=== PATIENT | male | born 1970 | race Caucasian/White ===

== ENCOUNTER 2016-11-10 12:44 | Inpatient (IN) | payer OTHER ==
[~2016-11-10 12:44] MED LIST: RINGERS SOLUTION,LACTATED 1,000 ML IV PRN
--- NOTE | 2016-11-10 12:55 | ER Document Report ---
ED Medical Screen (RME) - General Chief Complaint: Hand Swelling Stated Complaint: RIGHT HAND PAIN/SWELLING Time seen by provider: 12:51 Mode of Arrival: Ambulatory Notes: 46 yo male presents to ed for right hand and thumb pain, was seen at [facility] last . States they said you could get the results of the ct scan and labs from that visit, he has been 60 mg of prednisone and tylenol with hydrocodone since that visit but the pain is worse TRAVEL OUTSIDE OF THE [place] IN LAST 30 DAYS: No - HPI Onset: Last week Onset/Duration: Gradual, Worse Quality of pain: Throbbing Severity: Moderate Pain Level: 3 Associated Symptoms: Other - hand Exacerbated by: Other - not keeping ice on it or letting it lower than heart Relieved by: Remaining still, Other - elevation and ice - Related Data Smoking: Cigarettes - 1/2 ppd Frequency of alcohol use: None - 14 year dry Drug Abuse: None Allergies/Adverse Reactions: acetaminophen [From Tylenol] Allergy (Verified 03/14/16 15:07) NSAIDS (Non-Steroidal Anti-Inflamma [Nsaids] Allergy (Verified 03/14/16 15:07) Past Medical History - Past Medical History Cardiac Medical History: Reports: Hx Hypercholesterolemia, Hx Hypertension Denies: Hx Coronary Artery Disease Pulmonary Medical History: Denies: Hx Asthma Neurological Medical History: Denies: Hx Seizures Musculoskeltal Medical History: Reports Hx Arthritis, Reports Hx Musculoskeletal Deformity, Reports Hx Musculoskeletal Trauma Traumatic Medical History: Reports: Hx Fractures, Hx Spine Fracture Past Surgical History: Reports: Hx Cardiac Catheterization - septic when had faciitis, Hx Orthopedic Surgery, Hx Vascular Surgery - skin grafts to right arm from the thighs from facitis. Denies: Hx Pacemaker - Immunizations Hx Diphtheria, Pertussis, Tetanus Vaccination: Yes - today
[2016-11-10 13:46] LABS: ABSOLUTE BASOPHILS # (AUTO) 0.1 10^3/uL (0.0-0.2); ABSOLUTE LYMPHOCYTES (AUTO) 1.2 10^3/uL (0.5-4.7); ABSOLUTE MONOCYTES (AUTO) 0.3 10^3/uL (0.1-1.4); ABSOLUTE NEUT (AUTO) 10.7 10^3/uL (1.7-8.2); BASOPHILS % (AUTO) 0.5 % (0-2); EOSINOPHILS % (AUTO) 0.4 % (0-6); HEMATOCRIT 36.7 % (37.9-51.0); HEMOGLOBIN 12.4 g/dL (13.5-17.0); HGB HCT DIFFERENCE 0.5; MEAN CORPUSCULAR HEMOGLOBIN 28.2 pg (27.0-33.4); MEAN CORPUSCULAR HGB CONC 33.9 g/dL (32.0-36.0); MEAN CORPUSCULAR VOLUME 83 fl (80-97); MONOCYTES % (AUTO) 2.7 % (3-13); RED BLOOD COUNT 4.42 10^6/uL (4.35-5.55); RED CELL DISTRIBUTION WIDTH 13.8 % (11.5-14.0); SEGMENTED NEUTROPHILS % (AUTO) 86.4 % (42-78); WHITE BLOOD COUNT 12.4 10^3/uL (4.0-10.5)
[2016-11-10 14:08] LABS: ALANINE AMINOTRANSFERASE 22 U/L (21-72); ALBUMIN 3.9 g/dL (3.5-5.0); ALKALINE PHOSPHATASE 60 U/L (38-126); ANION GAP 10 (5-19); ASPARTATE AMINO TRANSFERASE 15 U/L (17-59); BILIRUBIN,TOTAL 0.4 mg/dL (0.2-1.3); BLOOD UREA NITROGEN 19 mg/dL (7-20); CARBON DIOXIDE 26 mmol/L (22-30); CHLORIDE 104 mmol/L (98-107); CREATININE RESULT 0.86 mg/dL (0.52-1.25); GLUCOSE 138 mg/dL (75-110); POTASSIUM 3.9 mmol/L (3.6-5.0); SODIUM 140.1 mmol/L (137-145); TOTAL PROTEIN 7.2 g/dL (6.3-8.2)
[2016-11-10] MEDS ORDERED: ONDANSETRON HCL INJ/PF 4 MG/2 ML SDV IV ONE (14:17)
[2016-11-10] MEDS ORDERED: HYDROMORPHONE HCL INJ/PF 2 MG/ML AMPULE IV ONE (14:17)
--- NOTE | 2016-11-10 14:31 | ER Document Report ---
ED Hand/Wrist Injury - General Chief Complaint: Hand Pain Stated Complaint: RIGHT HAND PAIN/SWELLING Mode of Arrival: Ambulatory Notes: Patient noted the onset of swelling of his right hand beginning about 10 days ago. Does not recall any injury or reason that he would have such swelling. Has never had this previously. A few days later, about a week ago, he went to the emergency department at [facility] where he was seen by a doctor Andrew José, who ordered an x-ray and a CT scan of the hand (patient told they were negative) and gave the patient a shot of antibiotics, but no prescription for more antibiotics after the ER visit. He was told that his final diagnosis was arthritis. His hand and wrist was splinted and he was put on [place] for pain and prednisone 60 mg a day for 7 days. He was advised to follow-up with Dr. Idris Hyman at the [facility] for [facility]. His hand has progressively swollen and today and they attempted to follow-up with the surgeon, but were advised there was a $400 co-pay which they cannot afford. Apparently that surgeon's office recommended they come to this emergency department since he's been seen here for medical problems previously. Patient has not noted any fever. His main focus of pain and swelling seems to be around the first metacarpal and thumb and the adjacent thenar region. He does not have any numbness or loss of use of the hand or fingers at this time. TRAVEL OUTSIDE OF THE [place] IN LAST 30 DAYS: No - Related Data Allergies/Adverse Reactions: acetaminophen [From Tylenol] Allergy (Verified 03/14/16 15:07) NSAIDS (Non-Steroidal Anti-Inflamma [Nsaids] Allergy (Verified 03/14/16 15:07) Past Medical History - Social History Smoking Status: Current Every Day Smoker Cigarette use (# per day): Yes Chew tobacco use (# tins/day): No Frequency of alcohol use: None - 14 year dry Drug Abuse: None Family History: Reviewed & Not Pertinent, Arthritis, CVA, DM, Hyperlipidemia, Hypertension Patient has suicidal ideation: No Patient has homicidal ideation: No - Past Medical History Cardiac Medical History: Reports: Hx Hypercholesterolemia, Hx Hypertension Pulmonary Medical History: Denies: Hx Asthma Musculoskeltal Medical History: Reports Hx Arthritis, Reports Hx Musculoskeletal Deformity, Reports Hx Musculoskeletal Trauma, Reports Other - Patient had necrotizing fasciitis which cause significant injury and damage to the muscles of his right forearm Traumatic Medical History: Reports: Hx Fractures, Hx Spine Fracture Past Surgical History: Reports: Hx Cardiac Catheterization - septic when had faciitis, Hx Orthopedic Surgery, Hx Vascular Surgery - skin grafts to right arm from the thighs from facitis. Denies: Hx Pacemaker - Immunizations Hx Diphtheria, Pertussis, Tetanus Vaccination: Yes - today Review of Systems - Review of Systems Notes: REVIEW OF SYSTEMS: CONSTITUTIONAL : Denies fever. EENT: Denies eye, ear, nose or mouth or throat pain or other symptoms. CARDIOVASCULAR: Denies chest pain. RESPIRATORY: Denies cough, chest congestion, or shortness of breath. GASTROINTESTINAL: Denies abdominal pain or nausea, vomiting, or diarrhea. GENITOURINARY: Denies difficulty or painful urinating, urinary frequency, blood in urine. MUSCULOSKELETAL: Denies back or neck pain. See history of present illness regarding right hand. SKIN: Denies rash or skin lesions. NEUROLOGICAL: Denies LOC or altered mental status. Denies headache. Denies sensory loss or motor deficits. ALL OTHER SYSTEMS REVIEWED AND NEGATIVE. Physical Exam - Vital signs Vitals: Temp Pulse Resp BP Pulse Ox 97.3 F 86 16 144/82 H 98 11/10/16 12:52 11/10/16 12:52 11/10/16 12:52 11/10/16 12:52 11/10/16 12:52 Interpretation: Normal - Temp 97.3, pulse 86, respirations 16, blood pressure 144/82, O2 sat 98% in triage. - Notes Notes: PHYSICAL EXAMINATION: GENERAL: Well-appearing, in no acute distress. Vital signs are all normal. HEAD: Atraumatic, normocephalic. LUNGS: Breath sounds clear and equal bilaterally. HEART: Regular rate and rhythm without murmurs. ABDOMEN: Soft, nontender. No guarding or rebound. BACK: No tenderness throughout entire back. EXTREMITIES: Right hand diffusely swollen, primarily around the first MP joint and the first metacarpal. Tender to palpate around that area and into the thenar eminence on the palm surface. Flexion or extension at the MP joint produces some pain, but does not produce as much pain that I would expect with a tenosynovitis of the tendon or sheath. Excellent blood flow into all digits with brisk capillary refill and pink, warm hand and fingers. NEUROLOGICAL: Normal speech, normal gait. Normal sensory, motor, and reflex exams. Awake, alert, and oriented x3. Cranial nerves normal. PSYCH: Normal mood, normal affect. SKIN: Warm, dry, no rashes. Course - Re-evaluation Re-evalutation: 11/10/16 19:[address] Stafford, fuel distribution system operator for or so, who will admit the patient and see him in the morning to determine what to do to try to establish a definite diagnosis and proper treatment. He recommends no antibiotics at this time. Patient states that he thinks his IV is in his left radial artery as the blood is very bright red and spurted out when the IV was started. Also, he says he can feel medications and anything else being administered through that IV line. He has an excellent radial pulse distal to the needle. He has excellent capillary refill in all the fingers of that hand. He has movement of all the fingers and thumb. No evidence of extravasation. Just as a precaution, I have asked the nurse to remove that IV and we will have to reestablish another one. - Vital Signs Vital signs: Temp Pulse Resp BP Pulse Ox 97.3 F 86 16 144/82 H 98 11/10/16 12:52 11/10/16 12:52 11/10/16 12:52 11/10/16 12:52 11/10/16 12:52 - Laboratory Result Diagrams: 11/10/16 13:25 11/10/16 13:25 Laboratory results interpreted by me: 11/10/16 11/10/16 11/10/16 13:25 13:25 13:25 WBC 12.4 H Hgb 12.4 L Hct 36.7 L Seg Neutrophils % 86.4 H Lymphocytes % 10.0 L Monocytes % 2.7 L Absolute Neutrophils 10.7 H ESR Glucose 138 H AST 15 L C-Reactive Protein 15.1 H Rheumatoid Factor 11/10/16 11/10/16 13:25 14:13 WBC Hgb Hct Seg Neutrophils % Lymphocytes % Monocytes % Absolute Neutrophils ESR 27 H Glucose AST C-Reactive Protein Rheumatoid Factor POSITIVE 1:1 H 11/10/16 19:55 - Diagnostic Test Radiology reviewed: Image reviewed, Reports reviewed - MRI of the patient's right hand shows multiple abnormal findings of the bone and soft tissue of the first metacarpal with multiple fluid collections measuring 5-10 mm as well as enhancement in the marrow of the bone. The impression is possible osteomyelitis with soft tissue abscess with differential consideration including inflammatory arthropathies. Discharge - Discharge Clinical Impression: Swelling of right hand, Possible osteomyelitis with abscess Disposition: ADMITTED OBSERVATION Admitting Provider: Stafford Unit Admitted: Surgical Floor
[2016-11-10 14:33] LABS: C-REACTIVE PROTEIN 15.1 mg/L (<10.0); URIC ACID 4.2 mg/dL (3.5-8.5)
[2016-11-10] MEDS ORDERED: HYDROMORPHONE HCL 2 MG TABLET PO ONE (20:01)
[2016-11-10] MEDS ORDERED: PROMETHAZINE HCL 25 MG TABLET PO ONE (20:01)
[2016-11-10] MEDS ORDERED: HYDROCODONE/ACETAMINOPHEN 5-325 MG TABLET PO PRN (20:44)
[2016-11-10] MEDS ORDERED: ONDANSETRON HCL INJ/PF 4 MG/2 ML SDV IV PRN (20:45)
[2016-11-10] MEDS: MORPHINE SULFATE 10 MG/ML INJ IV PRN (23:39)
[2016-11-11] MEDS ORDERED: INFLUENZA ADLT QUAD (36MOS+) 2016-17 VAC 0.5 ML SYR IM PRN (00:29)
[2016-11-11] MEDS: MORPHINE SULFATE 10 MG/ML INJ IV PRN ×7 (03:43→22:25)
[2016-11-11] MEDS ORDERED: HYDROMORPHONE HCL INJ/PF 2 MG/ML AMPULE ONE (14:15)
[2016-11-11] MEDS ORDERED: MIDAZOLAM 2 MG/2 ML INJ ONE (14:15)
[2016-11-11] MEDS ORDERED: PROPOFOL INJ 200 MG/20 ML VIAL IV ONE (14:16)
[2016-11-11] MEDS ORDERED: ONDANSETRON HCL INJ/PF 4 MG/2 ML SDV ONE (14:16)
[2016-11-11] MEDS ORDERED: EPHEDRINE SULFATE INJ 50 MG/1 ML AMPULE ONE (14:16)
--- NOTE | 2016-11-11 14:23 | PDOC H&P ---
History of Present Illness Admission Date/PCP: 11/10/16 20:43 Patient complains of: Right hand swelling and pain History of Present Illness: GURPREET VALLE is a 46 year old male who about 10 days ago developed swelling and pain and the right thumb/hand. He was seen in [facility] where they give from intramuscular antibiotics and prednisone to take. CT scan was done showing a fluid collection so they were not concerned for infection. Patient now returns to [facility] complaining of increased pain and swelling. Denies any numbness or tingling but complains of pain and swelling. There is some mild erythema now. Patient has decreased range of motion of the hand second to the swelling and pain and redness. MRI was done in the ER and noticed that the patient have fluid collection and orthopedics was consulted for surgical intervention. Patient denies having use IV drug abuse. Denies previous trauma or injury to the right hand. Past Medical History Cardiac Medical History: Reports: Hyperlipidema, Hypertension Denies: Coronary Artery Disease Pulmonary Medical History: Denies: Asthma Neurological Medical History: Denies: Seizures Musculoskeltal Medical History: Reports: Arthritis, Other - Patient had necrotizing fasciitis which cause significant injury and damage to the muscles of his right forearm Past Surgical History Past Surgical History: Reports: Cardiac Catheterization - septic when had faciitis, Orthopedic Surgery, Vascular Surgery - skin grafts to right arm from the thighs from facitis Denies: Pacemaker Social History Smoking Status: Current Every Day Smoker Cigarettes Packs Per Day: 0.5 Number of Years Smokin Frequency of Alcohol Use: None Hx Recreational Drug Use: No Drugs: None - Advance Directive Resuscitation Status: Full Code Family History Family History: Reviewed & Not Pertinent, Arthritis, CVA, DM, Hyperlipidemia, Hypertension Parental Family History Reviewed: Yes Children Family History Reviewed: Yes Sibling(s) Family History Reviewed.: Yes Medication/Allergy Home Medications: Cyclobenzaprine HCl [Flexeril 10 Mg Tablet] 10 mg PO TIDP PRN #10 tablet Clindamycin HCl [Cleocin 150 mg Capsule] 450 mg PO Q6 10 Days 02/10/15 Doxycycline Hyclate 100 mg PO BID #20 capsule 02/10/15 Oxycodone HCl/Acetaminophen [Percocet 5-325 mg Tablet] 1 - 2 tab PO ASDIR PRN # 15 tablet 02/10/15 Oxycodone HCl/Acetaminophen [Percocet 5-325 mg Tablet] 1 - 2 tab PO Q4H PRN #15 tablet 02/13/15 Cephalexin [Cephalexin 500 MG Tablet] 500 mg PO QID #25 tablet 07/11/15 Clindamycin HCl 300 mg PO QID #30 capsule 07/11/15 Oxycodone HCl [Oxycodone HCl 10 MG Tablet] 1 - 2 tab PO Q6H PRN #15 tablet 07/11 Cephalexin Monohydrate [Keflex 500 mg Capsule] 500 mg PO QID #28 capsule Oxycodone HCl 5 mg PO Q4HP PRN #20 capsule 09/12/15 Sulfamethoxazole/Trimethoprim [Bactrim Ds Tablet] 1 each PO BID #14 tablet 09/12 Oxycodone HCl 5 mg PO Q4 #15 capsule 09/13/15 No Home Medications 11/11/16 Allergies/Adverse Reactions: acetaminophen [From Tylenol] Allergy (Verified 03/14/16 15:07) NSAIDS (Non-Steroidal Anti-Inflamma [Nsaids] Allergy (Verified 03/14/16 15:07) Physical Exam Vital Signs: Temp Pulse Resp BP Pulse Ox 36.7 C 64 15 132/75 H 100 11/11/16 11:26 11/11/16 11:26 11/11/16 11:26 11/11/16 11:26 11/11/16 11:26 Intake & Output 11/10/16 11/11/16 11/12/16 06:59 06:59 06:59 Intake Total 360 0 Balance 360 0 Weight 73 kg General appearance: PRESENT: no acute distress Eye exam: PRESENT: EOMI. ABSENT: conjunctival injection, nystagmus Respiratory exam: PRESENT: chest wall tenderness, symmetrical, unlabored. ABSENT: accessory muscle use, tachypnea Pulses: PRESENT: normal radial pulses Vascular exam: PRESENT: normal capillary refill Front of Hands Image: 1 - Thenar swelling both volar and dorsal. Limited metacarpophalangeal motion second to pain. IP joint has good range of motion but discomfort. Has good sensation to light touch with good capillary refill of the thumb and hand. Wrist dhillon he can extend and flex the wrist. Remaining digits he has full range of motion without pain. Neurological exam: PRESENT: alert, awake, oriented to person, oriented to place , oriented to time Psychiatric exam: PRESENT: appropriate affect, normal mood Skin exam: PRESENT: erythema, intact, normal color Results Impressions: Hand X-Ray 11/10/16 12:55 IMPRESSION: Soft tissue swelling in the right hand without radiopaque foreign body or soft tissue gas. Advanced osteoarthritis at the right 1st carpometacarpal joint. Upper Extremity MRI 11/10/16 14:21 IMPRESSION: Multiple abnormal findings in both bone and soft tissue of the 1st metacarpal and trapezium bones and joint space, with multiple small rim enhancing fluid collections measuring 5 to 10 mm as well as enhancement in the marrow. This may reflect osteomyelitis with soft tissue abscess with differential considerations including inflammatory arthropathies. Hand Surgical consultation is recommended. Assessment & Plan - Diagnosis (1) Abscess of hand, right Is this a current diagnosis for this admission?: YesPlan: 46-year-old gentleman with right hand swelling and a increased white count, sedimentation rate, CRP. These labs in conjunction with the fluid in the MRI I believe the patient probably has an abscess. Patient was admitted and made nothing by mouth and started on IV fluids. We'll have to do an irrigation debridement of the thenar area of the hand both dorsal and volar to access the side of infection. We will culture the infection and then set him on antibiotics after the I&D. I anticipate the patient is being admitted for at least 2 nights for IV antibiotics and then be discharge with by mouth antibiotics.
[2016-11-11] MEDS ORDERED: FENTANYL CITRATE INJ/PF 100 MCG/2 ML AMPUL IV PRN ×3 (15:08)
[2016-11-11] MEDS ORDERED: DIPHENHYDRAMINE HCL 50 MG/ML VIAL IV PRN (15:08)
[2016-11-11] MEDS ORDERED: MEPERIDINE HCL/PF INJ 25 MG/1 ML DISP.SYRIN IV PRN (15:08)
[2016-11-11] MEDS ORDERED: PROMETHAZINE HCL INJ 25 MG/1 ML VIAL IV PRN (15:08)
[2016-11-11] MEDS: BACITRACIN INJ 50,000 UNIT VIAL ONE ×2 (15:15→15:25)
[2016-11-11] MEDS ORDERED: BUPIVACAINE HCL 0.25% /EPINEPHRINE INJ/PF 30 ML SDV ONE (15:21)
[2016-11-11] MEDS ORDERED: BUPIVACAINE HCL 0.25 % INJ/PF (2.5 MG/1 ML) 30 ML VIAL ONE (15:22)
[2016-11-11] MEDS ORDERED: OXYCODONE HCL IR 5 MG TABLET PO PRN (15:56)
--- NOTE | 2016-11-11 15:57 | Operative Report ---
Operative Report DATE OF SURGERY: 11/11/16 PREOPERATIVE DIAGNOSIS: Right hand cellulitis/abscess POSTOPERATIVE DIAGNOSIS: Right hand cellulitis OPERATION: Right hand I&D ANESTHESIA: GA COMPLICATIONS: none ESTIMATED BLOOD LOSS: 15mL PROCEDURE: Patient was brought to the operating room and induced and intubated after being placed in supine position and the right hand was prepped and draped in a normal surgical fashion. Antibiotics were not given until after the cultures. No tourniquet was applied. After sterilely prepping and draping the right upper extremity we did a timeout identifying the right thenar region and first MTP joint. 2 half-inch incisions were done on the first webspace on the dorsal aspect and a stab incision at the base of the thumb over the tip trapezius and metacarpal joint both were dissected bluntly with a hemostat clamp. No pus was expressed. Cultures were taken. She had significant edema and had serosanguineous drainage only. Once this creak most of the edema out I proceeded then to use iodoform packing to use as a wick for both incisions and placed one stitch in each to approximate the tissue. I overwrapped it with a 4 x 4 dressing and soft roll and [place]. At this point the drapes were cut and removed and the patient was extubated and sent to PACU in stable condition. Patient will be started on IV antibiotics now and will have a vision changes postop day 1 and now reevaluation of the hand.
[2016-11-11] MEDS: PIPERACILLIN SODIUM/TAZOBACTAM 3.375 GM in NORMAL SALINE 100 ML IV SCH (18:00)
[2016-11-11] MEDS: OXYCODONE HCL IR 5 MG TABLET PO PRN (21:19)
[2016-11-12] MEDS: MORPHINE SULFATE 10 MG/ML INJ IV PRN ×8 (00:41→21:51)
[2016-11-12] MEDS: PIPERACILLIN SODIUM/TAZOBACTAM 3.375 GM in NORMAL SALINE 100 ML IV SCH ×3 (02:06→17:49)
[2016-11-12] MEDS: OXYCODONE HCL IR 5 MG TABLET PO PRN ×5 (02:07→22:31)
[2016-11-12 05:39] LABS: ABSOLUTE BASOPHILS # (AUTO) 0.1 10^3/uL (0.0-0.2); ABSOLUTE EOSINOPHILS # (AUTO) 0.2 10^3/uL (0.0-0.6); ABSOLUTE LYMPHOCYTES (AUTO) 3.8 10^3/uL (0.5-4.7); ABSOLUTE NEUT (AUTO) 7.4 10^3/uL (1.7-8.2); EOSINOPHILS % (AUTO) 1.6 % (0-6); HEMATOCRIT 35.6 % (37.9-51.0); HGB HCT DIFFERENCE 0.4; LYMPHOCYTES % (AUTO) 30.4 % (13-45); MEAN CORPUSCULAR HEMOGLOBIN 28.2 pg (27.0-33.4); MEAN CORPUSCULAR HGB CONC 33.7 g/dL (32.0-36.0); MEAN CORPUSCULAR VOLUME 84 fl (80-97); MONOCYTES % (AUTO) 7.9 % (3-13); RED BLOOD COUNT 4.25 10^6/uL (4.35-5.55); SEGMENTED NEUTROPHILS % (AUTO) 59.1 % (42-78); WHITE BLOOD COUNT 12.4 10^3/uL (4.0-10.5)
--- NOTE | 2016-11-12 14:15 | PDOC PROGRESS REPORT ---
Subjective Progress Note for:: 11/12/16 Subjective:: Patient with significant pain requiring narcotics and IV morphine. No fevers or chills overnight. Physical Exam Vital Signs: Temp Pulse Resp BP Pulse Ox 36.9 C 50 L 16 111/59 L 93 11/12/16 11:01 11/12/16 11:01 11/12/16 11:01 11/12/16 11:01 11/12/16 11:01 Intake & Output 11/11/16 11/12/16 11/13/16 06:59 06:59 06:59 Intake Total 360 1900 1168 Output Total 1860 Balance 803 09 9770 Weight 73 kg General appearance: PRESENT: no acute distress Front of Hands Image: 1 - Both incisions just draining serosanguineous fluid. Packing was removed. Erythema is stable and swelling is stable. Patient has good capillary refilling able to flex and extend the digits though stiffen sore as expected. Able to oppose and flex the MCP joint as well. Limited range of motion second to swelling and pain as mentioned above. Results Laboratory Results: 11/12/16 04:48 11/12/16 04:48 WBC 12.4 H RBC 4.25 L Hgb 12.0 L Hct 35.6 L MCV 84 MCH 28.2 MCHC 33.7 RDW 14.0 Plt Count 315 Seg Neutrophils % 59.1 Lymphocytes % 30.4 Monocytes % 7.9 Eosinophils % 1.6 Basophils % 1.0 Absolute Neutrophils 7.4 Absolute Lymphocytes 3.8 Absolute Monocytes 1.0 Absolute Eosinophils 0.2 Absolute Basophils 0.1 Impressions: Hand X-Ray 11/10/16 12:55 IMPRESSION: Soft tissue swelling in the right hand without radiopaque foreign body or soft tissue gas. Advanced osteoarthritis at the right 1st carpometacarpal joint. Upper Extremity MRI 11/10/16 14:21 IMPRESSION: Multiple abnormal findings in both bone and soft tissue of the 1st metacarpal and trapezium bones and joint space, with multiple small rim enhancing fluid collections measuring 5 to 10 mm as well as enhancement in the marrow. This may reflect osteomyelitis with soft tissue abscess with differential considerations including inflammatory arthropathies. Hand Surgical consultation is recommended. Assessment & Plan - Diagnosis (1) Abscess of hand, right Is this a current diagnosis for this admission?: Yes - Plan Summary Plan Summary: 46-year-old gentleman who is postop day 1 from attempted I and D of the right thenar space and base of the first MCP joint. Cultures are negative at the moment. Gram stain showed no bacteria. Dressing was removed and the iodoform packing was removed from his to stab incisions. Has significant swelling but consistent with a postop swelling. Erythema is not spreading on exam today. We 'll continue IV antibiotics and monitor the results of the cultures. If he continues to improve we will likely discharge in the next day or 2.
[2016-11-13] MEDS: MORPHINE SULFATE 10 MG/ML INJ IV PRN ×7 (00:37→22:42)
[2016-11-13] MEDS: PIPERACILLIN SODIUM/TAZOBACTAM 3.375 GM in NORMAL SALINE 100 ML IV SCH ×3 (01:35→17:25)
[2016-11-13 06:28] LABS: ABSOLUTE BASOPHILS # (AUTO) 0.1 10^3/uL (0.0-0.2); ABSOLUTE EOSINOPHILS # (AUTO) 0.3 10^3/uL (0.0-0.6); ABSOLUTE LYMPHOCYTES (AUTO) 3.3 10^3/uL (0.5-4.7); ABSOLUTE MONOCYTES (AUTO) 1.1 10^3/uL (0.1-1.4); ABSOLUTE NEUT (AUTO) 6.5 10^3/uL (1.7-8.2); EOSINOPHILS % (AUTO) 2.5 % (0-6); HEMATOCRIT 44.9 % (37.9-51.0); HGB HCT DIFFERENCE 0.7; LYMPHOCYTES % (AUTO) 29.6 % (13-45); MEAN CORPUSCULAR HGB CONC 33.9 g/dL (32.0-36.0); MEAN CORPUSCULAR VOLUME 83 fl (80-97); MONOCYTES % (AUTO) 9.3 % (3-13); RED BLOOD COUNT 5.44 10^6/uL (4.35-5.55); RED CELL DISTRIBUTION WIDTH 13.8 % (11.5-14.0); SEGMENTED NEUTROPHILS % (AUTO) 57.6 % (42-78); WHITE BLOOD COUNT 11.3 10^3/uL (4.0-10.5)
[2016-11-13 06:39] LABS: HEMOGLOBIN 15.2 g/dL (13.5-17.0)
[2016-11-13] MEDS: OXYCODONE HCL IR 5 MG TABLET PO PRN ×4 (06:40→21:08)
--- NOTE | 2016-11-13 18:36 | PDOC PROGRESS REPORT ---
Subjective Progress Note for:: 11/13/16 Subjective:: Patient states he is feeling saw improved and the swelling and pain in his right thumb and hand Physical Exam Vital Signs: Temp Pulse Resp BP Pulse Ox 36.4 C 86 20 118/69 100 11/13/16 15:09 11/13/16 15:09 11/13/16 15:09 11/13/16 15:09 11/13/16 15:09 Intake & Output 11/12/16 11/13/16 11/14/16 06:59 06:59 06:59 Intake Total 1900 2090 710 Output Total 1860 120 250 Balance 40 1970 460 General appearance: PRESENT: no acute distress Front of Hands Image: 1 - Both incisions are dry clean and intact with no drainage. Erythema and swelling has decreased since yesterday. Patient is working on range of motion is able to extend and flex the index middle ring and small finger. The thumb is decreased secondary to swelling and pain. Has good sensation to light this all the digits and good capillary refill. Results Laboratory Results: 11/13/16 05:57 11/13/16 05:57 WBC 11.3 H RBC 5.44 Hgb 15.2 D Hct 44.9 MCV 83 MCH 28.0 MCHC 33.9 RDW 13.8 Plt Count 310 Seg Neutrophils % 57.6 Lymphocytes % 29.6 Monocytes % 9.3 Eosinophils % 2.5 Basophils % 1.0 Absolute Neutrophils 6.5 Absolute Lymphocytes 3.3 Absolute Monocytes 1.1 Absolute Eosinophils 0.3 Absolute Basophils 0.1 Impressions: Hand X-Ray 11/10/16 12:55 IMPRESSION: Soft tissue swelling in the right hand without radiopaque foreign body or soft tissue gas. Advanced osteoarthritis at the right 1st carpometacarpal joint. Upper Extremity MRI 11/10/16 14:21 IMPRESSION: Multiple abnormal findings in both bone and soft tissue of the 1st metacarpal and trapezium bones and joint space, with multiple small rim enhancing fluid collections measuring 5 to 10 mm as well as enhancement in the marrow. This may reflect osteomyelitis with soft tissue abscess with differential considerations including inflammatory arthropathies. Hand Surgical consultation is recommended. Assessment & Plan - Diagnosis (1) Abscess of hand, right Is this a current diagnosis for this admission?: Yes - Plan Summary Plan Summary: 46-year-old gentleman status post I&D of the right hand. Cultures are negative to date. Thankfully the IV antibiotics I feel are working and his erythema and swelling are improving. Still requiring IV morphine for breakthrough pain. I' ll keep him one more day. Tomorrow high likelihood of discharging him home and I discussed that with them and is okay with it.
[2016-11-14] MEDS: OXYCODONE HCL IR 5 MG TABLET PO PRN ×4 (01:03→13:57)
[2016-11-14] MEDS: PIPERACILLIN SODIUM/TAZOBACTAM 3.375 GM in NORMAL SALINE 100 ML IV SCH ×2 (03:16→09:51)
[2016-11-14 05:34] LABS: ABSOLUTE BASOPHILS # (AUTO) 0.2 10^3/uL (0.0-0.2); ABSOLUTE EOSINOPHILS # (AUTO) 0.4 10^3/uL (0.0-0.6); ABSOLUTE LYMPHOCYTES (AUTO) 3.7 10^3/uL (0.5-4.7); ABSOLUTE MONOCYTES (AUTO) 0.9 10^3/uL (0.1-1.4); ABSOLUTE NEUT (AUTO) 5.8 10^3/uL (1.7-8.2); BASOPHILS % (AUTO) 1.4 % (0-2); EOSINOPHILS % (AUTO) 3.3 % (0-6); HEMATOCRIT 44.4 % (37.9-51.0); HEMOGLOBIN 15.3 g/dL (13.5-17.0); HGB HCT DIFFERENCE 1.5; LYMPHOCYTES % (AUTO) 33.8 % (13-45); MEAN CORPUSCULAR HEMOGLOBIN 28.7 pg (27.0-33.4); MEAN CORPUSCULAR HGB CONC 34.5 g/dL (32.0-36.0); MEAN CORPUSCULAR VOLUME 83 fl (80-97); MONOCYTES % (AUTO) 7.9 % (3-13); RED BLOOD COUNT 5.33 10^6/uL (4.35-5.55); RED CELL DISTRIBUTION WIDTH 13.9 % (11.5-14.0); SEGMENTED NEUTROPHILS % (AUTO) 53.6 % (42-78); WHITE BLOOD COUNT 10.9 10^3/uL (4.0-10.5)
[2016-11-14] MEDS: MORPHINE SULFATE 10 MG/ML INJ IV PRN ×3 (06:54→16:26)
--- NOTE | 2016-11-14 17:31 | PDOC DISCHARGE SUMMARY ---
General - Admit/Disc Date/PCP Admission Date/Primary Care Provider: 11/10/16 20:43 Discharge Date: 11/14/16 - Discharge Diagnosis (1) Abscess of hand, right Is this a current diagnosis for this admission?: Yes - Additional Information Resuscitation Status: Full Code Home Medications: Cyclobenzaprine HCl [Flexeril 10 Mg Tablet] 10 mg PO TIDP PRN #10 tablet Clindamycin HCl [Cleocin 150 mg Capsule] 450 mg PO Q6 10 Days 02/10/15 Doxycycline Hyclate 100 mg PO BID #20 capsule 02/10/15 Oxycodone HCl/Acetaminophen [Percocet 5-325 mg Tablet] 1 - 2 tab PO ASDIR PRN # 15 tablet 02/10/15 Oxycodone HCl/Acetaminophen [Percocet 5-325 mg Tablet] 1 - 2 tab PO Q4H PRN #15 tablet 02/13/15 Cephalexin [Cephalexin 500 MG Tablet] 500 mg PO QID #25 tablet 07/11/15 Clindamycin HCl 300 mg PO QID #30 capsule 07/11/15 Oxycodone HCl [Oxycodone HCl 10 MG Tablet] 1 - 2 tab PO Q6H PRN #15 tablet 07/11 Cephalexin Monohydrate [Keflex 500 mg Capsule] 500 mg PO QID #28 capsule Oxycodone HCl 5 mg PO Q4HP PRN #20 capsule 09/12/15 Sulfamethoxazole/Trimethoprim [Bactrim Ds Tablet] 1 each PO BID #14 tablet 09/12 Oxycodone HCl 5 mg PO Q4 #15 capsule 09/13/15 Oxycodone HCl [Oxy-Ir 5 mg Tablet] 5 mg PO Q4HP PRN #30 tablet 11/14/16 Sulfamethoxazole/Trimethoprim [Bactrim Ds Tablet] 1 each PO BID #14 tablet 11/14 History of Present Illness Patient complains of: Right hand pain and swelling and redness History of Present Illness: Patient is a 46-year-old gentleman who 8 days prior to admission and had the right hand swelling and pain and had gone to [facility]. He was treated with 1 shot of IV antibiotics and sent home with prednisone for hand swelling. CAT scan done there did not show any fluid collection. Patient unfortunately started to have increased pain and swelling despite the prednisone and did not follow-up with orthopedic surgeon and showed up as the [facility] where he was admitted for questionable abscess after an MRI showed fluid collection. Patient denies any fevers or chills. I had a numbness or tingling. Denies any previous injuries or infection to the right hand. Hospital Course Hospital Course: Patient was admitted overnight and was taken to the OR for I&D of the right hand thenar and thumb cellulitis/abscess. Cultures were taken nailing came back growing nothing. Patient was placed on IV Zosyn after the procedure and after 3 days of IV antibiotics the redness and swelling had decreased. Patient erythema has resolved as well. On postop day 1 dressings were removed and packing was removed as well. Both incisions are dry clean and intact. Patient denies any numbness or tingling. Has decreased swelling but he does complain of pain in the thumb and decreased range of motion second to pain. No other acute events during his hospital stay. Physical Exam Vital Signs: Temp Pulse Resp BP Pulse Ox 36.6 C 84 18 112/62 99 11/14/16 15:47 11/14/16 15:47 11/14/16 15:47 11/14/16 15:47 11/14/16 15:47 Intake & Output 11/13/16 11/14/16 11/15/16 06:59 06:59 06:59 Intake Total 2090 1092 Output Total 120 250 Balance 1970 842 Weight 70.5 kg General appearance: PRESENT: no acute distress Front of Hands Image: 1 - Both incisions are dry clean and intact. Erythema has resolved. Decreased swelling compared to yesterday and significantly decreased compared to initial admission. He has worked on range of motion and is able to flex and extend all PIP and DIP joints of the second through fifth digits. Pertaining to the thumb he has pain with opposition but able to oppose and flex the MCP joint and the IP joint of the thumb. Has good sensation to light touch with good radial pulse and good capillary refill. Psychiatric exam: PRESENT: appropriate affect, normal mood Results Laboratory Results: 11/14/16 04:46 11/14/16 04:46 WBC 10.9 H RBC 5.33 Hgb 15.3 Hct 44.4 MCV 83 MCH 28.7 MCHC 34.5 RDW 13.9 Plt Count 365 Seg Neutrophils % 53.6 Lymphocytes % 33.8 Monocytes % 7.9 Eosinophils % 3.3 Basophils % 1.4 Absolute Neutrophils 5.8 Absolute Lymphocytes 3.7 Absolute Monocytes 0.9 Absolute Eosinophils 0.4 Absolute Basophils 0.2 11/11/16 15:22 Hand - Right Gram Stain - Final 11/11/16 15:22 Hand - Right Wound Culture - Final NO AEROBIC OR ANAEROBIC ORGANISMS RECOVERED Impressions: Hand X-Ray 11/10/16 12:55 IMPRESSION: Soft tissue swelling in the right hand without radiopaque foreign body or soft tissue gas. Advanced osteoarthritis at the right 1st carpometacarpal joint. Upper Extremity MRI 11/10/16 14:21 IMPRESSION: Multiple abnormal findings in both bone and soft tissue of the 1st metacarpal and trapezium bones and joint space, with multiple small rim enhancing fluid collections measuring 5 to 10 mm as well as enhancement in the marrow. This may reflect osteomyelitis with soft tissue abscess with differential considerations including inflammatory arthropathies. Hand Surgical consultation is recommended. Qualifiers PATEINT BEING DISCHARGED WITH ANY OF THE FOLLOWING DIAGNOSIS?: No VTE patient discharged on overlapping Therapy?: No Reason(s) for not prescribing Overlap Therapy:: Not indicated Plan Discharge Plan: Instructed to follow-up with and charity [facility] this Monday. [facility] and [place]. Instructed to call [facility] for surgery. Meantime he will be discharged with oxycodone for pain control and Bactrim for antibiotics. Instructed to call back if he develops fevers chills or increased redness swelling follow order any other change in symptoms. Okay to shower
[2016-11-14 18:01] VITALS: BP 132/75
== END 2016-11-14 18:24 | disposition home or self-care (01) | DRG 603 ==
LOC: ER 12:44 → EH 20:15 → UNDOADMOB 20:15 → INTOOBSV 20:43 → OBSVTOIN 20:43 → EH 20:43 → 4W 22:35
PROVIDERS: ADMIT Orthopaedic Surgery; ATTEND Orthopaedic Surgery
PROC: 0H9FXZZ Drainage of Right Hand Skin, External Approach (ICD-10-PCS; principal; 2016-11-11 14:45)
DX: L02.511 Cutaneous abscess of right hand (principal); L03.113 Cellulitis of right upper limb; E78.00 Pure hypercholesterolemia, unspecified; I10 Essential (primary) hypertension; M79.89 Other specified soft tissue disorders; M19.90 Unspecified osteoarthritis, unspecified site; F17.210 Nicotine dependence, cigarettes, uncomplicated; Z88.6 Allergy status to analgesic agent; Z88.8 Allergy status to other drugs, medicaments and biological substances
CPT/HCPCS: 00400; 36415; 80053; 84550; 85025; 85652; 86140; 86430; 87040; 87070; 87075; 87205; 96374; 96375; 96376; 99285; A9576; J1170; J2250; J2270; J2405; J2543; J2704; J3490

== ENCOUNTER → 2016-12-06 | Outpatient (CLI) | payer OTHER ==
[2016-12-06 09:52] LABS: ABSOLUTE BASOPHILS # (AUTO) 0.1 10^3/uL (0.0-0.2); ABSOLUTE LYMPHOCYTES (AUTO) 1.6 10^3/uL (0.5-4.7); ABSOLUTE MONOCYTES (AUTO) 0.2 10^3/uL (0.1-1.4); ABSOLUTE NEUT (AUTO) 9.8 10^3/uL (1.7-8.2); BASOPHILS % (AUTO) 0.6 % (0-2); EOSINOPHILS % (AUTO) 0.1 % (0-6); HEMATOCRIT 35.3 % (37.9-51.0); HEMOGLOBIN 11.7 g/dL (13.5-17.0); HGB HCT DIFFERENCE -0.2; MEAN CORPUSCULAR HEMOGLOBIN 27.5 pg (27.0-33.4); MEAN CORPUSCULAR HGB CONC 33.2 g/dL (32.0-36.0); MEAN CORPUSCULAR VOLUME 83 fl (80-97); MONOCYTES % (AUTO) 1.5 % (3-13); RED BLOOD COUNT 4.25 10^6/uL (4.35-5.55); RED CELL DISTRIBUTION WIDTH 13.7 % (11.5-14.0); SEGMENTED NEUTROPHILS % (AUTO) 83.8 % (42-78); WHITE BLOOD COUNT 11.8 10^3/uL (4.0-10.5)
[2016-12-06 10:39] LABS: ERYTHROCYTE SEDIMENTATION RATE 35 mm/hr (0-15)
== END ==
LOC: RAD 07:20
PROVIDERS: ATTEND Orthopaedic Surgery
DX: M13.841 Other specified arthritis, right hand (principal)
CPT/HCPCS: 36415; 85025; 85652; 86140

== ENCOUNTER 2016-12-15 10:38 | Emergency (ER) | payer OTHER ==
[2016-12-15 11:03] VITALS: BP 132/89
--- NOTE | 2016-12-15 11:06 | ER Document Report ---
ED Medical Screen (RME) - General Stated Complaint: FINGER PAIN Notes: patient is in for right thumb. was previously admitted for osteomyelitis at the beginning of November. went to pain management and was referred over for evaluation. he has had swelling, pain and fevers for about 3 days. I have greeted and performed a rapid initial assessment of this patient. A comprehensive ED assessment and evaluation of the patient, analysis of test results and completion of the medical decision making process will be conducted by additional ED providers. TRAVEL OUTSIDE OF THE [place] IN LAST 30 DAYS: No - Related Data Allergies/Adverse Reactions: acetaminophen [From Tylenol] Allergy (Verified 03/14/16 15:07) NSAIDS (Non-Steroidal Anti-Inflamma [Nsaids] Allergy (Verified 03/14/16 15:07) Past Medical History - Past Medical History Cardiac Medical History: Reports: Hx Hypercholesterolemia, Hx Hypertension Denies: Hx Coronary Artery Disease Pulmonary Medical History: Denies: Hx Asthma Neurological Medical History: Denies: Hx Seizures Musculoskeltal Medical History: Reports Hx Arthritis, Reports Hx Musculoskeletal Deformity, Reports Hx Musculoskeletal Trauma Traumatic Medical History: Reports: Hx Fractures, Hx Spine Fracture Past Surgical History: Reports: Hx Cardiac Catheterization - septic when had faciitis, Hx Orthopedic Surgery, Hx Vascular Surgery - skin grafts to right arm from the thighs from facitis. Denies: Hx Pacemaker - Immunizations Hx Diphtheria, Pertussis, Tetanus Vaccination: Yes - today Physical Exam - Vital signs Vitals: Temp Pulse Resp BP Pulse Ox 97.5 F 68 20 132/89 H 98 12/15/16 11:01 12/15/16 11:01 12/15/16 11:12/15/16 11:01 12/15/16 11:01 Course - Vital Signs Vital signs: Temp Pulse Resp BP Pulse Ox 97.5 F 68 20 132/89 H 98 12/15/16 11:01 12/15/16 11:01 12/15/16 11:01 12/15/16 11:01 12/15/16 11:01
--- NOTE | 2016-12-15 12:20 | ER Document Report ---
HPI - HPI Patient complains to provider of: right thumb pain Onset: Other - 3 days Onset/Duration: Gradual Pain Level: 4 Context: 46-year-old male with a history of osteomyelitis and arthritis in the right thumb and CP joint wanted to be seen before I got really bad again. It started swelling with redness 3 days ago. He is a patient of Dr. Stafford and has had MRIs of the thumb. No fever. Associated Symptoms: None Exacerbated by: Movement Relieved by: Denies Similar symptoms previously: No Recently seen / treated by doctor: No - ROS ROS below otherwise negative: Yes Systems Reviewed and Negative: Yes All other systems reviewed and negative - DERM Skin Color: Normal Past Medical History - General Information source: Patient - Social History Smoking Status: Current Every Day Smoker Chew tobacco use (# tins/day): No Frequency of alcohol use: Recovering Alcoholic Drug Abuse: None Family History: Reviewed & Not Pertinent, Arthritis, CVA, DM, Hyperlipidemia, Hypertension Patient has suicidal ideation: No Patient has homicidal ideation: No - Past Medical History Cardiac Medical History: Reports: Hx Hypercholesterolemia, Hx Hypertension Neurological Medical History: Denies: Hx Seizures Renal/ Medical History: Denies: Hx Peritoneal Dialysis Musculoskeltal Medical History: Reports Hx Arthritis, Reports Hx Musculoskeletal Deformity, Reports Hx Musculoskeletal Trauma Traumatic Medical History: Reports: Hx Fractures, Hx Spine Fracture Past Surgical History: Reports: Hx Cardiac Catheterization - septic when had faciitis, Hx Orthopedic Surgery, Hx Vascular Surgery - skin grafts to right arm from the thighs from facitis. Denies: Hx Pacemaker - Immunizations Hx Diphtheria, Pertussis, Tetanus Vaccination: Yes - today Vertical Provider Document - CONSTITUTIONAL Agree With Documented VS: Yes Exam Limitations: No Limitations - INFECTION CONTROL TRAVEL OUTSIDE OF THE [place] IN LAST 30 DAYS: No - HEENT HEENT: Normocephalic - NECK Neck: Supple - RESPIRATORY Respiratory: Breath Sounds Normal, No Respiratory Distress O2 Sat by Pulse Oximetry: 98 - CARDIOVASCULAR Cardiovascular: Regular Rate, Regular Rhythm - MUSCULOSKELETAL/EXTREMETIES Musculoskeletal/Extremeties: Tender, Edema - Mild at the right thumb MCP joint and hyperthenar aspect. It is pink and warm. - NEURO Level of Consciousness: Awake, Alert - DERM Integumentary: Warm, Dry, No Rash Course - Re-evaluation Re-evalutation: 12/15/16 12:[address] Stafford a for his decision on how to treat this patient of his. I have he looked at both MRI results from November 10 and 12/06/2016. His RA factor was positive and there is questionable osteomyelitis, arthropathy. 12/15/16 13:[address] Gene Jacobs who recommends no antibiotics, walk into the office at 8:00 on Monday and he will set up preop surgery with Dr. clark. He also stated that he could see the patient in the emergency department an hour and a half but if the patient is okay going home with these instructions then he will see him 8:00 on Monday morning. The patient wants to go home and I will advise him reasons that he needs to come back to the emergency department before Monday which would be increased swelling, increased pain, redness, fever. - Vital Signs Vital signs: Temp Pulse Resp BP Pulse Ox 97.5 F 68 20 132/89 H 98 12/15/16 11:01 12/15/16 11:01 12/15/16 11:01 12/15/16 11:01 12/15/16 11:01 Discharge - Discharge Clinical Impression: right thumb arthritis, Pain of right thumb, hx osteomyelitis of the right thumb Condition: Good Disposition: HOME, SELF-CARE Instructions: Arthritis ([facility]) Additional Instructions: Walk into the office to see Dr. Nydia dunne Monday at 8 Return to the emergency room for any fever, increased pain, increased swelling, increased redness. Keep the thumb elevated. Prescriptions: Oxycodone HCl [Oxy-Ir 5 mg Tablet] 5 mg PO Q4HP PRN #20 tab PRN Reason: Forms: Parent Work Note, Return to Work Referrals: JEISON HOOKS MD [ACTIVE STAFF] - 12/19/16
[2016-12-15] MEDS ORDERED: OXYCODONE HCL IR 5 MG TABLET PO ONE (12:42)
== END 2016-12-15 14:07 | disposition home or self-care (01) ==
LOC: ER 10:38
DX: M19.041 Primary osteoarthritis, right hand (principal); F17.200 Nicotine dependence, unspecified, uncomplicated; E78.00 Pure hypercholesterolemia, unspecified; I10 Essential (primary) hypertension
CPT/HCPCS: 99283

== ENCOUNTER 2016-12-27 12:35 | Day surgery (SDC) | payer OTHER ==
[2016-12-26 12:26] LABS: HEMATOCRIT 36.7 % (37.9-51.0); HEMOGLOBIN 12.4 g/dL (13.5-17.0); HGB HCT DIFFERENCE 0.5; MEAN CORPUSCULAR HEMOGLOBIN 28.1 pg (27.0-33.4); MEAN CORPUSCULAR HGB CONC 33.7 g/dL (32.0-36.0); MEAN CORPUSCULAR VOLUME 83 fl (80-97); RED CELL DISTRIBUTION WIDTH 14.4 % (11.5-14.0); WHITE BLOOD COUNT 8.1 10^3/uL (4.0-10.5)
[2016-12-26 12:44] LABS: APPEARANCE,URINE CLEAR; BILIRUBIN,URINE NEGATIVE (NEGATIVE); GLUCOSE, URINE NEGATIVE (NEGATIVE); KETONES,URINE NEGATIVE (NEGATIVE); LEUKOCYTE ESTERASE,URINE NEGATIVE (NEGATIVE); NITRITE,URINE NEGATIVE (NEGATIVE); PROTEIN,URINE NEGATIVE (NEGATIVE); URINE SPECIFIC GRAVITY 1.023; UROBILINOGEN,URINE NEGATIVE mg/dL (<2.0)
[2016-12-26 12:50] LABS: ANION GAP 12 (5-19); BLOOD UREA NITROGEN 16 mg/dL (7-20); CALCIUM 9.5 mg/dL (8.4-10.2); CARBON DIOXIDE 23 mmol/L (22-30); CHLORIDE 106 mmol/L (98-107); CREATININE RESULT 1.01 mg/dL (0.52-1.25); GLUCOSE 95 mg/dL (75-110); POTASSIUM 4.4 mmol/L (3.6-5.0); SODIUM 140.8 mmol/L (137-145)
--- NOTE | 2016-12-26 20:03 | EKG REPORT ---
SEVERITY:- NORMAL ECG - SINUS RHYTHM : Confirmed by: Troy Garcia 26-Dec-2016 20:02:19
[~2016-12-27 12:35] MED LIST changes: +DEXAMETHASONE SOD PHOSPHATE INJ 4 MG/1 ML VIAL ONE; +LACTATED RINGERS 1000 ML IV PRN; +LIDOCAINE 0.5% INJ-PF (5 MG/ML) 50 ML SDV SUBCUT PRN; +LIDOCAINE 2% INJ-PF (20 MG/ML) 10 ML AMPUL ONE; +ONDANSETRON HCL INJ/PF 4 MG/2 ML SDV ONE; -RINGERS SOLUTION,LACTATED 1,000 ML IV PRN; +SUCCINYLCHOLINE CHLORIDE INJ 200 MG/10 ML VIAL ONE
[2016-12-27] MEDS ORDERED: DIAZEPAM 5 MG TABLET ONE (14:28)
[2016-12-27] MEDS ORDERED: FENTANYL CITRATE INJ/PF 250 MCG/5 ML AMPULE ONE (16:04)
[2016-12-27] MEDS ORDERED: MIDAZOLAM 2 MG/2 ML INJ ONE (16:04)
[2016-12-27] MEDS ORDERED: DEXMEDETOMIDINE INJ 80 MCG/20 ML VIAL IV ONE (16:05)
[2016-12-27] MEDS ORDERED: PROPOFOL INJ 200 MG/20 ML VIAL IV ONE (16:05)
[2016-12-27] MEDS ORDERED: MORPHINE SULFATE 10 MG/ML INJ ONE (16:05)
[2016-12-27] MEDS ORDERED: BUPIVACAINE HCL 0.5 % INJ/PF 30 ML SDV ONE (16:09)
[2016-12-27] MEDS ORDERED: CLINDAMYCIN PHOSPHATE INJ 300 MG/2 ML SDV ONE (16:25)
[2016-12-27] MEDS ORDERED: MEPERIDINE HCL/PF INJ 25 MG/1 ML DISP.SYRIN IV PRN (17:15)
[2016-12-27] MEDS ORDERED: MORPHINE SULFATE 10 MG/ML INJ IV PRN ×2 (17:15→17:58)
[2016-12-27] MEDS ORDERED: OXYCODONE-ACETAMINOPHEN 5-325 MG TABLET PO PRN ×2 (17:15)
[2016-12-27] MEDS ORDERED: PROMETHAZINE HCL INJ 25 MG/1 ML VIAL IV PRN ×2 (17:15)
[2016-12-27] MEDS ORDERED: FENTANYL CITRATE INJ/PF 100 MCG/2 ML AMPUL IV PRN ×3 (17:15)
[2016-12-27] MEDS ORDERED: DIPHENHYDRAMINE HCL 50 MG/ML VIAL IV PRN (17:15)
[2016-12-27] MEDS ORDERED: MORPHINE SULFATE 10 MG/5 ML ORAL SOLUTION UDCUP PO PRN (17:58)
--- NOTE | 2016-12-27 18:03 | PDOC DISCHARGE SUMMARY ---
Discharge Summary (SDC) - Discharge Final Diagnosis: Right Thumb CMC Arthropathy Date of Surgery: 12/27/16 Discharge Date: 12/27/16 Treatment or Instructions: Schedule Follow Up w/ Dr. Alex Britt @ [facility] for Surgery to be seen in 10-14 days or as scheduled [place]: [place]: [place]: Keep splint clean/dry/intact. Ice and elevate May begin finger range of motion attempting to make full fist. Stool softener of choice when on pain medication. Prescriptions: Clindamycin HCl [Cleocin HCl] 300 mg PO Q8 #30 capsule Oxycodone HCl [Oxy-Ir 5 mg Tablet] 5 mg PO Q6 #45 tab Referrals: DIANA MELCHOR PA-C [Primary Care Provider] - Discharge Diet: As Tolerated Respiratory Treatments at Home: Deep Breathing/Coughing Discharge Activity: No Lifting Over 10 Pounds, No Lifting/Push/Pulling Report the Following to Your Physician Immediately: Fever over 101 Degrees, Unusual Bleeding, Redness, Swelling, Warmth, Increased Soreness, Drainage-Foul Smelling, Numbness, Tingling Sensation
--- NOTE | 2016-12-27 18:10 | Operative Report ---
Operative Report DATE OF SURGERY: 12/27/16 PREOPERATIVE DIAGNOSIS: Right Thumb CMC Arthropathy OPERATION: I&D w/ Debridement Deep Tissue Including Bone,. CMC Arthroplasty Trapeziectomy, Ligament Reconstruction, Tendon Interposition SURGEON: JOSH HUNTER ANESTHESIA: GA TISSUE REMOVED OR ALTERED: Carpal Bone/Soft tissue Sent to Path and Micro for AFB, Fungal, Aerobic/Anaerobic COMPLICATIONS: None ESTIMATED BLOOD LOSS: Minimal INTRAOPERATIVE FINDINGS: No evidence of purulence PROCEDURE: Indication for above procedure: 46-year-old male who presented to the [facility] emergency room with redness swelling and pain of his thumb. He subsequently underwent irrigation and debridement of his right thumb. Patient originally saw improvement but then the pain and swelling returned. He has been seen by Dr. Stafford were labs were ordered and demonstrated no significant abnormalities including intraoperative cultures however patient's rheumatoid factor was positive. Patient was sent to me for second opinion. Patient's overall diagnosis is difficult to ascertain given the positive rheumatoid factor and negative organism for possible septic arthritis or osteomyelitis. However I feel surgical treatment is required for at least irrigation debridement and exploration along with trapeziectomy which will not only improve the patient's symptoms but may provide us with a diagnosis. Risks and benefits of the surgical procedure have been explained to the patient patient verbalized understanding consented for the procedure. Procedure In Detail: Patient was seen and evaluated in the preoperative holding area. The RIGHT upper extremity was initialized and marked. Patient antibiotics were held until cultures obtained. Patient was taken back to the operative room where transferred to the operative table and placed under general anesthesia. Once they were adequately anesthetized and a nonsterile tourniquet was placed on the upper extremity. A surgical team debriefing was performed ensuring all instrumentation was available, the surgical procedure was discussed with possible concerns reviewed. The upper extremity was prepped with chlorhexidine and alcohol and draped in a sterile fashion. A timeout was done identifying correct patient, procedure and extremity everyone in attendance agree with this and verbalized no concerns. The extremity was elevated the tourniquet was inflated to 200 mmHg. A longitudinal skin incision was made in line with the first dorsal compartment. I then meticulously dissected down to the interval of the APL and EPB identifying the superficial radial nerve branches which were retracted. There was dark pigmentation along the superficial soft tissues of unknown origin this was sent to pathology for further evaluation. I then identified the radial artery which was protected throughout the entirety of the case with a [place] elevator. A T-shaped capsulotomy was made at the CMC joint of the thumb. A freer elevator was used to shavonne out the CMC joint, fluoroscopy confirmed the thumb cmc joint placement. The capsule was released off of the trapezium circumferentially. There is no evidence of purulence once the CMC joint was entered. Swab cultures were obtained along with tissue cultures and pathology specimens. Debridement was performed within the CMC joint removing any nonviable appearing tissue. The FCR insertion volarly was protected. Using a rongeur the trapezium was excised as one unit. There was degenerative changes of the thumb CMC joint with softening along the base of the thumb metacarpal however no purulence encountered within the bone of the metacarpal. The proximal portion of the metacarpal was debrided and resected according to the increased signal area on MRI. I then removed any residual loose bodies and bone fragments. The STT joint was inspected and there was no evidence of degenerative changes. Given the lack of definitive sign of infection I proceeded with ligament reconstruction utilizing a slip of the abductor pollicis longus. Patient did have 3 slips of the abductor pollicis longus. The first dorsal compartment was released in its entirety dorsally. I then resected the most ulnar slip of the APL. This ulnar slip was then fed through the capsule of the CMC joint beneath the FCR tendon and attached to the base of the thumb metacarpal with intraosseous bone tunnels utilizing #1 PDS suture. C- arm fluoroscopy was then obtained demonstrating maintained space between the thumb metacarpal and scaphoid. The remaining APL tendon was then placed into the area of defect. The wound was then copiously irrigated with normal saline. The capsule of the CMC joint was closed with interrupted 4-0 Monocryl suture. 10 mL of 0.5% Marcaine without epinephrine was injected for postoperative pain control. The tourniquet was deflated any peripheral vasculature was carefully coagulated with bipolar cautery. Skin was closed with interrupted 3- 0 nylon vertical mattress sutures. Wound was dressed with Xeroform 4 x 4's and well-padded thumb spica plaster splint. Patient was extubated and transferred to the operative stretcher. There was no intraoperative complications patient tolerated procedure well with stable to PACU. Postoperative plan: Patient will continue the splint for 2 weeks. We will continue to monitor culture results. Patient will then be transitioned to a cast for an additional 2 weeks. They will then begin occupational therapy at 4 weeks and will be fitted for a thermoplastic splint at that time.
[2016-12-27 20:12] VITALS: BP 122/88
== END 2016-12-27 20:30 | disposition home or self-care (01) ==
LOC: OROUT 12:35 → 4S 12:35 → OROUT 20:30
PROVIDERS: ATTEND Orthopaedic Surgery
PROC: 0PTM0ZZ Resection of Right Carpal, Open Approach (ICD-10-PCS; 2016-12-27)
PROC: 0MQ70ZZ Repair Right Hand Bursa and Ligament, Open Approach (ICD-10-PCS; 2016-12-27)
PROC: [UNRECOGNIZED PROCEDURE] (principal; 2016-12-27 14:15)
DX: M86.8X3 Other osteomyelitis, forearm (principal); M18.11 Unilateral primary osteoarthritis of first carpometacarpal joint, right hand; M06.9 Rheumatoid arthritis, unspecified; M19.93 Secondary osteoarthritis, unspecified site; M79.641 Pain in right hand; J44.9 Chronic obstructive pulmonary disease, unspecified; F17.210 Nicotine dependence, cigarettes, uncomplicated; K21.9 Gastro-esophageal reflux disease without esophagitis; N40.0 Benign prostatic hyperplasia without lower urinary tract symptoms; J30.2 Other seasonal allergic rhinitis; F41.9 Anxiety disorder, unspecified; F32.9 Major depressive disorder, single episode, unspecified; Z79.51 Long term (current) use of inhaled steroids; Z79.899 Other long term (current) drug therapy; Z88.6 Allergy status to analgesic agent
CPT/HCPCS: 93005; 36415; 87070; 87205; 87206; 87116; 87101; 85027; 87075; 87077; 80048; 81001; 87186; 87015; 88304 ×2; 88311; 73100; 93010; 25447; 26480; J2250; J1100; J3010; J2270; J0330; J2405; J2704; J3490 ×2; 01830

== ENCOUNTER → 2017-01-04 | Day surgery (SDC) | payer BC, OTHER ==
[~2017-01-04] MED LIST changes: -DEXAMETHASONE SOD PHOSPHATE INJ 4 MG/1 ML VIAL ONE; -LACTATED RINGERS 1000 ML IV PRN; +LEVOFLOXACIN 750 MG/D5W RTU 750 MG/150 ML RTUPB IV ONE; -LIDOCAINE 0.5% INJ-PF (5 MG/ML) 50 ML SDV SUBCUT PRN; -LIDOCAINE 2% INJ-PF (20 MG/ML) 10 ML AMPUL ONE; -ONDANSETRON HCL INJ/PF 4 MG/2 ML SDV ONE; -SUCCINYLCHOLINE CHLORIDE INJ 200 MG/10 ML VIAL ONE
== END ==
LOC: RAD 08:41
PROVIDERS: ATTEND Orthopaedic Surgery
PROC: 05HC33Z Insertion of Infusion Device into Left Basilic Vein, Percutaneous Approach (ICD-10-PCS; principal; 2017-01-04)
DX: M00.031 Staphylococcal arthritis, right wrist (principal)
CPT/HCPCS: 96365; 96366; 36569; 77001; 76937; J1956; J1642

== ENCOUNTER 2017-03-15 15:20 | Emergency (ER) | payer BC, OTHER ==
[2017-03-15] MEDS ORDERED: MORPHINE SULFATE 10 MG/ML INJ IM ONE (15:59)
--- NOTE | 2017-03-15 15:59 | ER Document Report ---
ED Neck/Back Problem - General Chief Complaint: Back Injury Stated Complaint: BACK PAIN Time Seen by Provider: 03/15/17 15:47 Notes: 46 yo male c/o pain to sacrum and left lower back. pt was changing a tire, pulling on tire when the tire iron gave way and he fell backward onto buttocks. pt denies any radiculopathy, paresthesia, bowel/bladder change. pt had recent MRI of Lumbar Spine 02/28/17. MRI shows old compression fracture of T11 with kyphotic angulation and fusion of T10-11 and 12. Mild to moderate multilevel lumbar degenerative disc disease throughout lumbar spine with mild osteoarthritis throughout lumbar spine. Mild disc bulging, no herniation. Mild central canal stenosis at L4-5 TRAVEL OUTSIDE OF THE U.S. IN LAST 30 DAYS: No - HPI Patient complains to provider of: Pain, Injury Onset: Just prior to arrival Quality of pain: Achy Pain Level: 4 Context: Fall/near-fall Recent injury: Yes Associated symptoms: None, Lower back pain. denies: Fever, Incontinence, Motor loss, Numbness/tingling, Radiation to leg, Sensory loss Relieved by: Nothing Similar symptoms previously: Yes Recently seen / treated by doctor: Yes - Related Data Allergies/Adverse Reactions: acetaminophen [From Tylenol] Allergy (Verified 12/27/16 12:46) NSAIDS (Non-Steroidal Anti-Inflamma [Nsaids] Allergy (Verified 12/27/16 12:46) Past Medical History - General Information source: Patient - Social History Smoking Status: Current Every Day Smoker Frequency of alcohol use: None Drug Abuse: None Lives with: Family Family History: Reviewed & Not Pertinent, Arthritis, CVA, DM, Hyperlipidemia, Hypertension Patient has suicidal ideation: No Patient has homicidal ideation: No - Past Medical History Cardiac Medical History: Reports: Hx Hypercholesterolemia, Hx Hypertension Denies: Hx Coronary Artery Disease, Hx Heart Attack Pulmonary Medical History: Denies: Hx Asthma, Hx Bronchitis, Hx COPD, Hx Pneumonia Neurological Medical History: Denies: Hx Cerebrovascular Accident, Hx Seizures Renal/ Medical History: Denies: Hx Peritoneal Dialysis Musculoskeltal Medical History: Reports Hx Arthritis - HANDS AND SPINE, RHEUMATOID ARTHRITIS, Reports Hx Musculoskeletal Deformity, Reports Hx Musculoskeletal Trauma Traumatic Medical History: Reports: Hx Fractures, Hx Spine Fracture Past Surgical History: Reports: Hx Cardiac Catheterization - septic when had faciitis, Hx Orthopedic Surgery, Hx Vascular Surgery - skin grafts to right arm from the thighs from facitis. Denies: Hx Pacemaker - Immunizations Hx Diphtheria, Pertussis, Tetanus Vaccination: Yes Review of Systems - Review of Systems Constitutional: No symptoms reported EENT: No symptoms reported Cardiovascular: No symptoms reported Respiratory: No symptoms reported Gastrointestinal: No symptoms reported Genitourinary: No symptoms reported Male Genitourinary: No symptoms reported Musculoskeletal: See HPI, Back pain Skin: No symptoms reported Hematologic/Lymphatic: No symptoms reported Neurological/Psychological: No symptoms reported Physical Exam - Vital signs Vitals: Temp Pulse Resp BP Pulse Ox 98.3 F 71 18 135/81 H 98 03/15/17 15:39 03/15/17 15:39 03/15/17 15:39 03/15/17 15:39 03/15/17 15:39 Interpretation: Normal - General General appearance: Appears well, Alert - HEENT Head: Normocephalic, Atraumatic Eyes: Normal Pupils: PERRL - Respiratory Respiratory status: No respiratory distress Chest status: Nontender Breath sounds: Normal Chest palpation: Normal - Cardiovascular Rhythm: Regular Heart sounds: Normal auscultation Murmur: No - Abdominal Inspection: Normal Distension: No distension Bowel sounds: Normal Tenderness: Nontender Organomegaly: No organomegaly - Back Back: Tender - focal sacral tenderness, no bruising. + left rhomboid and lattissimus tenderness. no lumbar or thoracic vertebral tenderness - Extremities General upper extremity: Normal inspection, Nontender, Normal color, Normal ROM , Normal temperature General lower extremity: Normal inspection, Nontender, Normal color, Normal ROM , Normal temperature, Normal weight bearing. No: Dustin's sign - Neurological Neuro grossly intact: Yes Cognition: Normal Orientation: AAOx4 [place] Coma Scale Eye Opening: Spontaneous [place] Coma Scale Verbal: Oriented [place] Coma Scale Motor: Obeys Commands [place] Coma Scale Total: 15 Speech: Normal Motor strength normal: LUE, RUE, LLE, RLE Sensory: Normal - Psychological Associated symptoms: Normal affect, Normal mood - Skin Skin Temperature: Warm Skin Moisture: Dry Skin Color: Normal Course - Re-evaluation Re-evalutation: 03/15/17 16:42 xray negative. results reviewed with patient. stable for discharge - Vital Signs Vital signs: Temp Pulse Resp BP Pulse Ox 98.3 F 71 18 135/81 H 98 03/15/17 15:39 03/15/17 15:39 03/15/17 15:39 03/15/17 15:39 03/15/17 15:39 Discharge - Discharge Clinical Impression: Coccydynia Back strain Qualifiers: Encounter type: initial encounter Qualified Code(s): S39.012A - Strain of muscle, fascia and tendon of lower back, initial encounter Condition: Stable Disposition: HOME, SELF-CARE Instructions: Warm Packs ([facility]), Ice Packs ([facility]), Low Back Pain ([facility]), Muscle Strain ([facility]), Contusion ([facility]), Muscle Relaxers ([facility]) Prescriptions: Methocarbamol [Robaxin 500 Mg Tablet] 1,000 mg PO Q6 #30 tablet
[2017-03-15] MEDS ORDERED: ONDANSETRON 4 MG TAB.RAPDIS PO ONE (16:00)
[2017-03-15 17:32] VITALS: BP 132/83
== END 2017-03-15 17:32 | disposition home or self-care (01) ==
LOC: ER 15:20
DX: S39.012A Strain of muscle, fascia and tendon of lower back, initial encounter (principal); W18.39XA Other fall on same level, initial encounter; Y93.89 Activity, other specified; M51.36 Other intervertebral disc degeneration, lumbar region; Z87.81 Personal history of (healed) traumatic fracture; Z88.6 Allergy status to analgesic agent; Z88.8 Allergy status to other drugs, medicaments and biological substances; F17.200 Nicotine dependence, unspecified, uncomplicated
CPT/HCPCS: 99283; 96372; 72220; S0119; J2270

== ENCOUNTER → 2017-03-31 | Outpatient (CLI) | payer BC, OTHER ==
[2017-03-31 13:53] LABS: ABSOLUTE BASOPHILS # (AUTO) 0.2 10^3/uL (0.0-0.2); ABSOLUTE EOSINOPHILS # (AUTO) 0.5 10^3/uL (0.0-0.6); ABSOLUTE LYMPHOCYTES (AUTO) 2.6 10^3/uL (0.5-4.7); ABSOLUTE MONOCYTES (AUTO) 0.6 10^3/uL (0.1-1.4); ABSOLUTE NEUT (AUTO) 4.7 10^3/uL (1.7-8.2); BASOPHILS % (AUTO) 1.9 % (0-2); EOSINOPHILS % (AUTO) 5.6 % (0-6); HEMATOCRIT 36.6 % (37.9-51.0); HGB HCT DIFFERENCE -0.6; LYMPHOCYTES % (AUTO) 30.1 % (13-45); MEAN CORPUSCULAR HEMOGLOBIN 26.1 pg (27.0-33.4); MEAN CORPUSCULAR HGB CONC 32.8 g/dL (32.0-36.0); MEAN CORPUSCULAR VOLUME 80 fl (80-97); RED BLOOD COUNT 4.58 10^6/uL (4.35-5.55); RED CELL DISTRIBUTION WIDTH 15.7 % (11.5-14.0); SEGMENTED NEUTROPHILS % (AUTO) 55.4 % (42-78); WHITE BLOOD COUNT 8.5 10^3/uL (4.0-10.5)
[2017-03-31 14:36] LABS: ERYTHROCYTE SEDIMENTATION RATE 22 mm/hr (0-15)
== END ==
LOC: LAB 12:19
PROVIDERS: ATTEND Orthopaedic Surgery
DX: M51.36 Other intervertebral disc degeneration, lumbar region (principal); M86.9 Osteomyelitis, unspecified
CPT/HCPCS: 36415; 85025; 85652; 86140; 87040

== ENCOUNTER → 2017-04-04 | Outpatient (CLI) | payer BC, OTHER ==
[~2017-04-04] MED LIST changes: +DIAZEPAM 5 MG TABLET ONE; -LEVOFLOXACIN 750 MG/D5W RTU 750 MG/150 ML RTUPB IV ONE
--- NOTE | 2017-04-04 17:25 | RADIOLOGY REPORT (SQ) ---
EXAM DESCRIPTION: MRI LUMBAR SPINE COMBO COMPLETED DATE/TIME: 04/04/2017 4:29 pm REASON FOR STUDY: DEGENERATION OF LUMBAR INTERVERTEBRAL DISC (M51.36) M86.9 OSTEOMYELITIS, UNSPECIF IED COMPARISON: Lumbar spine plain films 08/18/2012 CT lumbar spine 02/05/2016 TECHNIQUE: Sagittal and Axial imaging includes T1, T1 post gadolinium, T2, STIR and gradient echo se quences. Coronal T2/HASTE imaging. CONTRAST TYPE AND DOSE: 15 mL Multihance. RENAL FUNCTION: GFR > 60. LIMITATIONS: Study degraded by patient motion artifact. FINDINGS: VISUALIZED UPPER ABDOMEN: Limited evaluation. No acute or suspicious findings suggested. SEGMENTATION: No transitional anatomy. The lowest well-developed disc space is labeled L5-S1. ALIGNMENT: Anatomic. VERTEBRAE: At the upper edge of the field of view, there is bony ankylosis across the T11-12 disc spa ce with mild focal kyphosis in this area. This is similar compared to CT exam 02/05/2016. On the post contrasted images, there is minimal spotty enhancement at the disc space remnants at T10-11 and T11- 12 on sagittal series 11, images 8-12. BONE MARROW: Fatty marrow replacement at T11 and T12. Otherwise unremarkable DISC SIGNAL: Grossly normal POSTERIOR ELEMENTS: Generally intact. No pars defect evident. HARDWARE: None in the spine. CORD AND CONUS: Normal in size and signal intensity. Conus at the mid L1 level. SOFT TISSUES: No aortic aneurysm seen. No bulky retroperitoneal adenopathy or mass. No paraspinal mas s or fluid. T11-12: Chronic appearing ankylosis of the T11-12 disc space, at the upper edge of the field of view . This is similar compared to CT exam 02/05/2016. T12-L1: No significant central or foraminal encroachment. Minimal posterior disc bulging and mild b ilateral facet hypertrophy. L1-L2: No significant central or foraminal stenosis. Mild posterior disc bulging. Moderate bilatera l facet hypertrophy. L2-L3: Borderline central canal narrowing from diffuse posterior disc bulge and moderate bilateral fa cet and ligament hypertrophy. No significant foraminal narrowing. L3-L4: Mild central canal narrowing from broad diffuse posterior disc bulge and bulky bilateral facet and ligament hypertrophy. Mild bilateral inferior foraminal narrowing without exiting L3 nerve root impingement. L4-L5: Mild central canal stenosis results from broad diffuse posterior disc bulge with a small centr al protrusion, and moderate bilateral facet and ligament hypertrophy. There is mild bilateral inferi or foraminal narrowing without exiting L4 nerve root impingement. Small facet joint synovial cyst pr otruding off the posterior inferior aspect of the left L4-5 facet joint best shown on axial image 28. L5-S1: No significant central or foraminal encroachment. Mild bilateral facet hypertrophy. SACRUM: Visualized upper sacrum intact. ENHANCEMENT: No abnormal lumbar disc or lumbar nerve root enhancement OTHER: No other significant findings. IMPRESSION: Diffuse degenerative changes as above in the lumbar spine. Ankylosis across the T10-11 and T11-12 disc spaces at the upper edge of the field of view. This is s imilar compared to CT exam 02/05/2016 TECHNICAL DOCUMENTATION: JOB ID: [id number] [employer]- All Rights Reserved
== END ==
LOC: RAD 13:26
PROVIDERS: ATTEND Orthopaedic Surgery
DX: M86.9 Osteomyelitis, unspecified (principal); M51.36 Other intervertebral disc degeneration, lumbar region
CPT/HCPCS: 87206; 87116; 87015; 72158; A9577